=== PATIENT | female | born 2000 | race Hispanic/Latino ===

== ENCOUNTER 2023-01-16 09:43 | Outpatient (CLI) | payer OTHER | END 2023-01-16 09:44 | disposition home or self-care (01) | LOC: CSHLAB 09:43 | PROVIDERS: ATTEND Obstetrics & Gynecology | DX: Z01.812 Encounter for preprocedural laboratory examination (principal); O33.9 Maternal care for disproportion, unspecified; Z53.9 Procedure and treatment not carried out, unspecified reason | CPT/HCPCS: 85014; 85018; 85049; 86780; 86850; 86900; 86901; 87340; U0002 ==

== ENCOUNTER 2023-01-17 05:24 | Inpatient (IN) | payer OTHER ==
[2023-01-16 11:17] LABS: Hematocrit 36.5 % (34.9-44.5); Platelet Count 105 10x3/uL (150-450)
[2023-01-16 11:35] LABS: SARS-CoV-2 NAA Rapid Test Not Detected (NotDetected)
[2023-01-16 11:55] LABS: Hep B Surf Ag Non-Reactive S/CO (NonReactive)
[2023-01-16 11:56] LABS: Syphilis Antibody Nonreactive (Nonreactive); Syphilis Antibody Index 0.03 S/CO (<1.00 Non-Reactive)
[2023-01-17 05:39] VITALS: BMI 26.1
[2023-01-17] MEDS ORDERED: Misoprostol 200 MCG TAB PR PRN (05:39)
[2023-01-17] MEDS ORDERED: CEFAZOLIN 2 GM in Sodium Chloride 0.9% 100 ML IVPB SCH (05:39)
[2023-01-17] MEDS ORDERED: Promethazine HCl 25 MG/ML VIAL IM PRN ×2 (05:39→07:09)
[2023-01-17] MEDS ORDERED: Carboprost 250 MCG/ML AMP IM PRN (05:39)
[2023-01-17] MEDS ORDERED: Oxytocin 30 units/NS 500 ML 500 ML IV SCH (05:39)
[2023-01-17] MEDS ORDERED: Diphenoxylate HCl/Atropine Tablet PO PRN ×2 (05:39)
[2023-01-17] MEDS ORDERED: Famotidine/PF 20 mg/2ml Vial SLOW IVP PRN (05:39)
[2023-01-17] MEDS ORDERED: Bicitra 30 ML UDCUP PO PRN (05:39)
[2023-01-17] MEDS ORDERED: hydrALAZINE 20 MG/ML VIAL SLOW IVP PRN ×2 (05:39→09:08)
[2023-01-17] MEDS ORDERED: Lactated Ringer's 1,000 ML IV SCH (05:39)
[2023-01-17] MEDS ORDERED: Methylergonovine 0.2 MG/ML VIAL IM PRN (05:39)
[2023-01-17] MEDS ORDERED: Ondansetron PF 4 MG/2 ML Vial IVP PRN ×3 (05:39→07:09)
[2023-01-17] MEDS ORDERED: Moisturizing Cream (Eucerin) 113 GM JAR TOP PRN (07:09)
[2023-01-17] MEDS ORDERED: Promethazine HCl 25 MG SUPP PR PRN (07:09)
[2023-01-17] MEDS ORDERED: Naloxone HCl 0.4 mg/ml Vial IVP PRN ×2 (07:09)
[2023-01-17] MEDS ORDERED: fentaNYL 50 mcg/mL 1 mL Vial SLOW IVP PRN (07:09)
[2023-01-17] MEDS ORDERED: Meperidine HCl/PF 25 MG/ML VIAL SLOW IVP PRN (07:09)
[2023-01-17] MEDS ORDERED: Naloxone HCl 0.4 mg/ml Vial IV PRN (07:09)
[2023-01-17] MEDS ORDERED: diphenhydrAMINE 50 MG/ML VIAL IVP PRN (07:09)
[2023-01-17] MEDS ORDERED: ePHEDrine Sulfate 50 MG/10 ML VIAL ONE (07:15)
[2023-01-17] MEDS ORDERED: Ondansetron PF 4 MG/2 ML Vial ONE (07:15)
[2023-01-17] MEDS ORDERED: Communication Order-Pharmacy FS SCH (07:15)
[2023-01-17] MEDS ORDERED: Morphine PF 10 MG/10 ML VIAL ONE (07:15)
[2023-01-17] MEDS ORDERED: Oxytocin 10 UNITS/ML VIAL ONE (07:16)
[2023-01-17] MEDS ORDERED: Ketorolac Tromethamine 30 MG/ML VIAL ONE (08:11)
[2023-01-17] MEDS ORDERED: Phenylephrine 40 MG/NS 250 ML 250 ML ONE (08:11)
[2023-01-17] MEDS ORDERED: Lanolin Ointment 7 GM TUBE TOP PRN (09:08)
[2023-01-17] MEDS ORDERED: Simethicone Chewable 80 MG TAB PO PRN (09:08)
[2023-01-17] MEDS ORDERED: Boostrix 0.5 ML (Tdap) VIAL (>/=7 yrs of age) IM ONE (09:08)
[2023-01-17] MEDS ORDERED: Ketorolac Tromethamine 30 MG/ML VIAL IVP SCH (16:30)
[2023-01-17] MEDS ORDERED: Ketorolac Tromethamine 30 MG/ML VIAL IVP PRN (16:30)
[2023-01-17] MEDS ORDERED: HYDROcodone/Acetaminophen 5/325 mg Tablet PO PRN (19:30)
[2023-01-17] MEDS: Docusate 100 MG CAP PO SCH (21:34)
[2023-01-18 03:48] LABS: Hematocrit 30.6 % (34.9-44.5); Hemoglobin 10.1 g/dL (12.0-15.5); Mean Corpuscular Hemoglobin 30.6 pg (27.0-33.0); Mean Corpuscular Volume 92.7 fl (81.6-98.3); Mean Platelet Volume 13.3 fl (7.4-10.4); Platelet Count 110 10x3/uL (150-450); RBC Distribution Width 13.9 % (11.5-14.5); White Blood Cell (WBC) Count 11.7 10x3/uL (3.5-10.5)
[2023-01-18] MEDS: HYDROcodone/Acetaminophen 5/325 mg Tablet PO PRN (08:25)
[2023-01-18] MEDS: Docusate 100 MG CAP PO SCH ×2 (08:25→21:12)
[2023-01-18] MEDS: Ibuprofen 800 MG TAB PO SCH ×2 (13:46→21:12)
[2023-01-19] MEDS: Ibuprofen 800 MG TAB PO SCH (06:14)
[2023-01-19 07:35] VITALS: BP 112/72; TEMP 97.5
[2023-01-19] MEDS: HYDROcodone/Acetaminophen 5/325 mg Tablet PO PRN (08:04)
[2023-01-19] MEDS: Docusate 100 MG CAP PO SCH (08:04)
== END 2023-01-19 12:25 | disposition home or self-care (01) | DRG 787 ==
LOC: CSHLD 05:24 → CSHPP 11:35
PROVIDERS: ADMIT Obstetrics & Gynecology; ATTEND Obstetrics & Gynecology
PROC: 10D00Z1 Extraction of Products of Conception, Low, Open Approach (ICD-10-PCS; principal; 2023-01-17)
PROC: 0UB10ZZ Excision of Left Ovary, Open Approach (ICD-10-PCS; 2023-01-17)
PROC: 3E0P05Z Introduction of Adhesion Barrier into Female Reproductive, Open Approach (ICD-10-PCS; 2023-01-17)
DX: O34.211 Maternal care for low transverse scar from previous cesarean delivery (principal); O33.0 Maternal care for disproportion due to deformity of maternal pelvic bones; Z3A.39 39 weeks gestation of pregnancy; Z37.0 Single live birth; D27.1 Benign neoplasm of left ovary; O99.892 Other specified diseases and conditions complicating childbirth; O32.2XX0 Maternal care for transverse and oblique lie, not applicable or unspecified; Z11.52 Encounter for screening for COVID-19
CPT/HCPCS: 36415; 51702; 85014; 85018; 85027; 85049; 86780; 86850; 86900; 86901; 87340; 88304; 88307; J1885; J2274; J2405; J2550; J2590; J3490; J7120; U0002